=== PATIENT | male | born 1990 | race Two or more races ===

== ENCOUNTER 2020-12-28 21:33 | Emergency (ER) | payer MEDICAID, OTHER ==
[~2020-12-28] VITALS: Ht 172.7 cm; Wt 59.0 kg
[2020-12-28 21:39] VITALS: BP 121/84
== END 2020-12-29 00:06 | disposition left against medical advice (07) ==
LOC: EDBD 21:33 → EDUNIT# 21:33 → ER 21:40
DX: T65.91XA Toxic effect of unspecified substance, accidental (unintentional), initial encounter (principal); Z53.21 Procedure and treatment not carried out due to patient leaving prior to being seen by health care provider; X58.XXXA Exposure to other specified factors, initial encounter; Y93.89 Activity, other specified; Y92.89 Other specified places as the place of occurrence of the external cause; Y99.8 Other external cause status